=== PATIENT | male | born 1950 | race Caucasian/White ===

== ENCOUNTER → 2017-01-18 | Outpatient (CLI) | payer OTHER ==
[~2017-01-18] MED LIST: ASPIRIN (CHILDR81 MG PO; CRESTOR10 MG PO; NORVASC5 MG PO; PRAVACHOL40 MG PO; PROTONIX40 MG PO; ZITHROMAX250 MG PO
== END | disposition disaster alternative care site (69) ==
LOC: GRAD 07:42
DX: R06.09 Other forms of dyspnea (principal); R07.9 Chest pain, unspecified

== ENCOUNTER → 2017-01-28 | Outpatient (CLI) | payer OTHER | END | disposition disaster alternative care site (69) | LOC: GRAD 01-25 11:00 | DX: R10.11 Right upper quadrant pain (principal) ==